=== PATIENT | male | born 1970 | race Two or more races ===

== ENCOUNTER → 2021-03-07 | Emergency (ER) | payer OTHER, SELFPAY ==
[~2021-03-07] VITALS: Ht 177.8 cm; Wt 104.3 kg
[~2021-03-07] MED LIST: ETOMIDATE 20 MG/ 10 ML VIAL (AMIDATE) IVP ONE; MIDAZOLAM HCL 5 MG/5 ML VIAL IVP ONE
[2021-03-07 16:00] VITALS: BP_SYST 106
--- NOTE | 2021-03-07 16:00 | NUR ---
Patient to ER hallway for evaluation. Side rails up. Assumed care.
--- NOTE | 2021-03-07 16:03 | NUR ---
ER at bedside examining patient.
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
--- NOTE | 2021-03-07 17:35 | NUR ---
CONSENT SIGNED FOR MODERATE SEDATION
--- NOTE | 2021-03-07 18:40 | NUR ---
PT IS [id number], V/S STABLE, FAMILY IS OUTSIDE TO DRIVE PATIENT HOME WHEN READY
== END | disposition home or self-care (01) ==
LOC: SED 16:00
DX: S52.121A Displaced fracture of head of right radius, initial encounter for closed fracture (principal); S53.004A Unspecified dislocation of right radial head, initial encounter; W18.39XA Other fall on same level, initial encounter; Y93.89 Activity, other specified; Y92.89 Other specified places as the place of occurrence of the external cause; Y99.8 Other external cause status
CPT/HCPCS: 24600; 73070; 99152; 99285; J2250; J3490